=== PATIENT | female | born 1990 | race Caucasian/White ===

== ENCOUNTER 2018-12-10 10:32 | Emergency (ER) | payer OTHER ==
[~2018-12-10] VITALS: Ht 165.1 cm; Wt 90.7 kg
[2018-12-10] MEDS ORDERED: PREDNISONE 10 M10 MG PO (11:15)
[2018-12-10] MEDS ORDERED: TRAMADOL 50 MG50 MG PO (11:15)
[2018-12-10] MEDS ORDERED: NAPROSYN500 MG PO (11:15)
[2018-12-10 11:37] VITALS: BP 124/80
== END 2018-12-10 11:38 | disposition home or self-care (01) ==
LOC: M.ERS 10:32
DX: M54.5 Low back pain (principal); G89.29 Other chronic pain; F17.210 Nicotine dependence, cigarettes, uncomplicated; I95.9 Hypotension, unspecified; Z88.8 Allergy status to other drugs, medicaments and biological substances

== ENCOUNTER 2019-06-29 09:52 | Emergency (ER) | payer OTHER ==
[~2019-06-29] VITALS: Ht 165.1 cm; Wt 90.7 kg
[~2019-06-29 09:52] MED LIST: NAPROSYN500 MG PO; PREDNISONE 10 M10 MG PO; TRAMADOL 50 MG50 MG PO
[2019-06-29] MEDS ORDERED: TESSALON PERLE100 MG PO (11:35)
[2019-06-29] MEDS ORDERED: MEDROLDOSEPACK PO (11:35)
[2019-06-29] MEDS ORDERED: ZPAK PO (11:35)
[2019-06-29] MEDS ORDERED: VENTOLIN HFA 1818 GM INH (11:35)
[2019-06-29 11:51] LABS: INFLUENZA A ANTIGEN Negative (Negative); INFLUENZA B ANTIGEN Negative (Negative)
[2019-06-29 11:59] VITALS: BP 101/48
--- NOTE | 2019-06-29 16:55 | EKG ---
[place] [address] ELECTROCARDIOGRAM REPORT Name: BETI NORMAN Room: [facility]#: [id number] Admission: 06/29/19 Attend Phys: Discharge: 06/29/19 Date of : 89 Report #: [id number] THIS REPORT FOR: //name// [facility] ED Test Date: 2019-06-29 Test Time: 10:02:57 Pat Name: BETI LIRIANOOS Department: Room: Gender: F Diagnostic Radiologic Technologist: : 1990 Requested By: Trev Farr Order Number: [id number] MD: Aleksandr Arredondo Measurements Intervals [place] Rate: 97 P: 35 [place]: 126 QRS: 19 QRSD: 99 T: 29 QT: 357 QTc: 454 Interpretive Statements Sinus rhythm No previous ECG available for comparison Electronically Signed On 06-29-2019 16:55:12 [employer] by Aleksandr Arredondo [email or web address] <ELECTRONICALLY SIGNED> By: Aleksandr Arredondo MD, [facility] 06/29/19 1655 1002 1002 Aleksandr Arredondo MD, FACC /EPI
== END 2019-06-29 12:00 | disposition home or self-care (01) ==
LOC: M.ERS 09:52
PROVIDERS: Nurse Practitioner Family
DX: J20.9 Acute bronchitis, unspecified (principal); F17.200 Nicotine dependence, unspecified, uncomplicated; Z88.8 Allergy status to other drugs, medicaments and biological substances